=== PATIENT | female | born 1965 | race Caucasian/White ===

== ENCOUNTER → 2017-06-14 | Outpatient (CLI) | payer OTHER ==
--- NOTE | 2017-06-14 11:29 | RADIOLOGY REPORT (SQ) ---
EXAM DESCRIPTION: T SPINE AP/LAT COMPLETED DATE/TIME: 06/14/2017 11:12 am REASON FOR STUDY: PAIN IN THORACIC SPINE M54.6 PAIN IN THORACIC SPINE M54.2 CERVICALGIA COMPARISON: None. NUMBER OF VIEWS: Two views. TECHNIQUE: AP and lateral radiographic images acquired of the thoracic spine. LIMITATIONS: None. FINDINGS: MINERALIZATION: Normal. ALIGNMENT: Normal. No scoliosis. VERTEBRAE: No fracture or bone lesion. Maintained height, normal segmentation. DISCS: No significant loss of height or significant narrowing. There is some minimal anterior osteop hytic lipping in the mid thoracic spine. HARDWARE: None in the spine. MEDIASTINUM AND SOFT TISSUES: Normal heart size and aortic contour. No soft tissue abnormality. VISUALIZED LUNG MORFIN: Clear. OTHER: No other significant finding. IMPRESSION: Minimal degenerative changes as noted above TECHNICAL DOCUMENTATION: JOB ID: [id number] [employer]- All Rights Reserved
--- NOTE | 2017-06-14 11:32 | RADIOLOGY REPORT (SQ) ---
EXAM DESCRIPTION: C SP 4 OR 5 VIEWS COMPLETED DATE/TIME: 06/14/2017 11:12 am REASON FOR STUDY: CERVICALGIA M54.6 PAIN IN THORACIC SPINE M54.2 CERVICALGIA COMPARISON: None. NUMBER OF VIEWS: Five views. TECHNIQUE: AP, lateral, obliques and odontoid radiographic images acquired of the cervical spine. LIMITATIONS: None. FINDINGS: MINERALIZATION: Normal. ALIGNMENT: There is some mild loss of the normal cervical lordosis. VERTEBRAE: Vertebral bodies of normal height. DISCS: There is decrease in the C4-C 5, C5-C6, and C6-C7 disc space heights with associated osteophyt ic lipping. FORAMINA: There is mild foraminal encroachment at the C4-C5, C5-C6 and C6-C7 levels bilaterally. LATERAL AND POSTERIOR ELEMENTS: Facets, lateral masses and spinous processes without significant find ings. HARDWARE: None in the spine. SOFT TISSUES: No masses or calcifications. Lung apices clear. OTHER: No other significant finding. IMPRESSION: Mild degenerative changes as noted above TECHNICAL DOCUMENTATION: JOB ID: [id number]- All Rights Reserved
== END ==
LOC: OD 10:41
PROVIDERS: ATTEND Family Medicine
DX: M54.6 Pain in thoracic spine (principal); M54.2 Cervicalgia
CPT/HCPCS: 72050; 72070

== ENCOUNTER → 2018-02-11 | Outpatient (CLI) | payer OTHER ==
--- NOTE | 2018-02-11 18:20 | RADIOLOGY REPORT (SQ) ---
EXAM DESCRIPTION: ANKLE RIGHT COMPLETE COMPLETED DATE/TIME: 02/11/2018 5:17 pm REASON FOR STUDY: PAIN IN RIGHT ANKLE AND JOINTS OF RIGHT FOOT M25.571 PAIN IN RIGHT ANKLE AND JOIN TS OF RIGHT FOOT COMPARISON: None. NUMBER OF VIEWS: Three views. TECHNIQUE: AP, lateral, and oblique radiographic images acquired of the right ankle. LIMITATIONS: None. FINDINGS: MINERALIZATION: Normal. BONES: No acute fracture or dislocation. No worrisome bone lesions. JOINTS: No effusions. SOFT TISSUES: No soft tissue swelling. No foreign body. OTHER: No other significant finding. IMPRESSION: NEGATIVE STUDY OF THE RIGHT ANKLE. NO RADIOGRAPHIC EVIDENCE OF ACUTE INJURY. TECHNICAL DOCUMENTATION: JOB ID: [id number] [employer]- All Rights Reserved Reading location - IP/workstation name: [email or web address]
== END ==
LOC: OD 16:52
PROVIDERS: ATTEND Family Medicine
DX: M25.571 Pain in right ankle and joints of right foot (principal)

== ENCOUNTER 2019-05-09 20:34 | Emergency (ER) | payer OTHER ==
--- NOTE | 2019-05-09 21:55 | ER Document Report ---
Doctor's Note Notes: 05/09/19 21:54 Patient states she does not want to be seen by a mid-level she was to be seen by a real doctor if there is a real doctor in the emergency room she would like to be seen by a renal doctor.
[2019-05-09] MEDS ORDERED: CLINDAMYCIN HCL 150 MG CAPSULE PO ONE (23:14)
[2019-05-09] MEDS ORDERED: PREDNISONE 20 MG TABLET PO ONE (23:14)
--- NOTE | 2019-05-09 23:19 | ER Document Report ---
ED General - General TRAVEL OUTSIDE OF THE [place] IN LAST 30 DAYS: No - General Chief Complaint: Insect Bite Stated Complaint: BUG BITES Time Seen by Provider: 05/09/19 21:46 Primary Care Provider: NATALIA POWELL DO [Primary Care Provider] - Follow up as needed Notes: Patient is a 54-year-old female who presents with complaint of redness and irritation over and around areas where she has bites from what sounds to be deer flies. States she was bitten several times by yellow flies several days ago. She has been scratching the bites and squeezing them. She says she is now de veloped some redness around her knees and thighs. Bites are mainly over her lower extremities bilaterally. The redness does itch. There is some pain associated as well. No fevers. No vomiting. No abscess. No other complaints at this time. Patient does have a history of being "borderline diabetic". She is not currently on any medications. She is currently being followed for this by her primary care physician. (KATLIN MCKEON) - Related Data Allergies/Adverse Reactions: bee sting Allergy (Uncoded 05/26/14 14:34) Past Medical History - Social History Smoking Status: Unknown if Ever Smoked Frequency of alcohol use: None Drug Abuse: None Family History: Reviewed & Not Pertinent Pulmonary Medical History: Reports: Hx Asthma, Hx COPD Neurological Medical History: Reports: Hx Migraine Past Surgical History: Reports: Hx Cholecystectomy, Hx Hysterectomy, Hx Orthopedic Surgery - Immunizations Hx Diphtheria, Pertussis, Tetanus Vaccination: Yes Review of Systems - Review of Systems Notes: My Normal Review Basic REVIEW OF SYSTEMS: CONSTITUTIONAL : Denies fever, chills, or sweats. Denies recent illness. EENT: Denies eye, ear, throat, or mouth pain or symptoms. Denies nasal or sinus congestion. RESPIRATORY: Denies cough, cold, or chest congestion. Denies shortness of breath, difficulty breathing, or wheezing. GASTROINTESTINAL: Denies abdominal pain. Denies nausea, vomiting, or diarrhea. MUSCULOSKELETAL: Swelling of her lower extremities. SKIN: Redness. Bites on extremities. NEUROLOGICAL: Denies altered mental status or loss of consciousness. Denies headache. Denies weakness or paralysis or loss of use of either side. Denies problems with gait or speech. Denies sensory or motor loss. ALL OTHER SYSTEMS REVIEWED AND NEGATIVE. (KATLIN MCKEON) Physical Exam - Vital signs Vitals: Temp Pulse Resp BP Pulse Ox 99.2 F 115 H 18 145/95 H 97 05/09/19 20:36 05/09/19 20:36 05/09/19 20:36 05/09/19 20:36 05/09/19 20:36 - Notes Notes: General Appearance: Well nourished, alert, cooperative, no acute distress, no obvious discomfort. Vitals: reviewed, See vital signs table Eyes: PERRL, EOMI, Conjuctiva clear Mouth: No decreasd moisture Throat: No tonsillar inflammation, No airway obstruction, No lymphadenopathy Lungs: No wheezing, No rales, No rhonci, No accessory muscle use, good air exchange bilaterally. Heart: Normal rate, Regular rythm, No murmur, no rub Extremities: strength 5/5 in all extremities, good pulses in all extremities, no swelling or tenderness in the extremities, no edema. Skin: Multiple bites and over her lower extremities. She does have some redness over the knees and into the thighs. It is warm to touch. There is no fluctuance or induration. No evidence of abscess. Neuro: speech clear, oriented x 3, normal affect, responds appropriately to questions. (KATLIN MCKEON) Course - Re-evaluation Re-evalutation: 05/09/19 23:18 Patient does have spreading redness around both legs. This could be a localized reaction from the bites however patient has been scratching and opening up the bites and the redness is also somewhat painful as opposed to just pruritic. I therefore will cover with clindamycin. She cannot take Benadryl. I will therefore place her on a in his own to try to help with the itching as well as with a possible reaction. I encouraged her return to ER immediately if she has fevers, vomiting, worsening redness, or if she feels unwell. She says that she does have a history of borderline diabetes but is not on any medications. I did check her blood sugar here it was 122. I did inform her of the risk of her blood sugar increasing on the prednisone and to keep a close eye on this and to return to ER if she feels unwell in any way. Patient agrees with plan will be discharged home. Dictation of this chart was performed using voice recognition software; therefore, there may be some unintended grammatical errors. (KATLIN MCKEON) - Vital Signs Vital signs: Temp Pulse Resp BP Pulse Ox 98.9 F 94 20 136/89 H 98 05/09/19 23:39 05/09/19 23:39 05/09/19 23:39 05/09/19 23:39 05/09/19 23:39 - Laboratory Laboratory results interpreted by me: 05/09/19 23:01 POC Glucose 122 H Discharge - Discharge Clinical Impression: Bug bite Qualifiers: Encounter type: initial encounter Qualified Code(s): W57.XXXA - Bitten or stung by nonvenomous insect and other nonvenomous arthropods, initial encounter Cellulitis Qualifiers: Site of cellulitis: extremity Site of cellulitis of extremity: lower extremity Laterality: unspecified laterality Qualified Code(s): L03.119 - Cellulitis of unspecified part of limb Condition: Good Disposition: HOME, SELF-CARE Additional Instructions: I suspect that the redness around your legs could be a combination of both an infection from scratching the wound as well as a reaction to bug bites themselves. I have placed you on prednisone. Please take it as prescribed. If you start feeling unwell or feel that you are worsening please return to ER so we can recheck you. We have placed you on an antibiotic called clindamycin. Please take this as prescribed. Please stop the antibiotic if you develop diarrhea and return to the ER. Please follow-up with the physician in 3 to 4 days for reevaluation to make sure that everything is improving. Return to ER immediately for fevers, spreading redness, vomiting, or if you feel unwell. Prescriptions: RX: Clindamycin HCl [Cleocin 150 mg Capsule] 300 mg PO Q6 #56 capsule RX: Prednisone [Deltasone 10 mg Tablet] 10 mg PO ASDIR PRN #20 tablet PRN Reason: Referrals: NATALIA POWELL DO [Primary Care Provider] - Follow up as needed
[2019-05-09 23:40] VITALS: BP 136/89
== END 2019-05-09 23:40 | disposition home or self-care (01) ==
LOC: ER 20:34
DX: L03.119 Cellulitis of unspecified part of limb (principal); S80.862A Insect bite (nonvenomous), left lower leg, initial encounter; S80.861A Insect bite (nonvenomous), right lower leg, initial encounter; W57.XXXA Bitten or stung by nonvenomous insect and other nonvenomous arthropods, initial encounter; J44.9 Chronic obstructive pulmonary disease, unspecified
CPT/HCPCS: 99282; 82962; J7512

== ENCOUNTER 2019-06-24 08:26 | Day surgery (SDC) | payer OTHER ==
[2019-06-24] MEDS ORDERED: ALBUTEROL SULFATE 0.083% NEB 2.5 MG/3 ML AMPUL NEB ONE (09:25)
[2019-06-24] MEDS ORDERED: IPRATROPIUM/ALBUTEROL 0.5-2.5 MG/3 ML AMPUL NEB ONE (09:27)
[2019-06-24] MEDS ORDERED: PROMETHAZINE HCL INJ 25 MG/1 ML VIAL IV PRN ×2 (10:07→11:25)
[2019-06-24] MEDS ORDERED: ONDANSETRON HCL INJ/PF 4 MG/2 ML SDV IV PRN (10:07)
[2019-06-24] MEDS ORDERED: DIPHENHYDRAMINE HCL 50 MG/ML VIAL IV PRN (10:07)
[2019-06-24] MEDS ORDERED: FENTANYL CITRATE INJ/PF 100 MCG/2 ML AMPUL IV PRN (10:07)
[2019-06-24] MEDS ORDERED: MIDAZOLAM 2 MG/2 ML INJ ONE (10:19)
[2019-06-24] MEDS ORDERED: PROPOFOL INJ 200 MG/20 ML VIAL IV ONE ×2 (10:19→10:58)
--- NOTE | 2019-06-24 11:02 | Operative Report ---
Operative Report DATE OF SURGERY: 06/24/19 Operative Report: The risks, benefits and alternatives of the procedure including the risk of bleeding, perforation requiring surgery have been explained to the patient in detail and informed consent has been obtained. Patient is taken back to the operating room and placed in the left, lateral decubital position. Timeout was called. Propofol medication is administered. Rectal examination is done which did not reveal any masses, tears or fissures. An Olympus videoscope was introduced into the patient's rectum. The scope was then carefully advanced all the way to the cecum. The cecum was identified by the usual anatomical landmarks including the ileocecal valve as well as the appendiceal office. Photodocumentation is obtained. The scope was then sequentially pulled back via the various segments of the colon including the ascending colon, hepatic flexure, transverse colon, splenic flexure, descending colon finding to the rectosigmoid portions of the colon. Retroflexion maneuvers performed. PREOPERATIVE DIAGNOSIS: Rectal bleeding POSTOPERATIVE DIAGNOSIS: Left-sided colon inflammation status post biopsy. Internal hemorrhoids OPERATION: Colonoscopy with biopsy SURGEON: LENORE MARTINEZ ANESTHESIA: LMAC TISSUE REMOVED OR ALTERED: As noted above. COMPLICATIONS: None. ESTIMATED BLOOD LOSS: None. INTRAOPERATIVE FINDINGS: As noted above. PROCEDURE: Patient tolerated the procedure well. No immediate postprocedure complications are noted. Patient is discharged in good condition. Discharge date 06/24/2019. Discharge diet: Regular. Discharge activity: Regular. 2 to 3-week follow-up to discuss findings. Patient is instructed to call the office or proceed to the emergency room should there be any further problems or questions. Wait on the pathology. This can also be used as a screening since then no polyps 10-year surveillance colonoscopy.
[2019-06-24] MEDS ORDERED: ACETAMINOPHEN 325 MG TABLET PO PRN (11:24)
[2019-06-24] MEDS ORDERED: SIMETHICONE 80 MG TAB.CHEW PO PRN (11:24)
[2019-06-24 12:22] VITALS: BP 135/80
== END 2019-06-24 12:25 | disposition home or self-care (01) ==
LOC: END 08:26
PROVIDERS: ATTEND Internal Medicine Gastroenterology
DX: K62.5 Hemorrhage of anus and rectum (principal); K52.9 Noninfective gastroenteritis and colitis, unspecified; K64.8 Other hemorrhoids; E66.9 Obesity, unspecified; G47.33 Obstructive sleep apnea (adult) (pediatric); J43.9 Emphysema, unspecified; Z68.30 Body mass index [BMI] 30.0-30.9, adult; F17.210 Nicotine dependence, cigarettes, uncomplicated
CPT/HCPCS: 45380; 82962; 88305 ×2; 94640; 00811; J2250; J2704; J7620; 811

== ENCOUNTER → 2020-01-28 | Outpatient (CLI) | payer OTHER ==
--- NOTE | 2020-01-28 13:02 | RADIOLOGY REPORT (SQ) ---
EXAM DESCRIPTION: CHEST PA/LATERAL COMPLETED DATE/TIME: 01/28/2020 12:52 pm REASON FOR STUDY: PRE-OP COMPARISON: None. EXAM PARAMETERS: NUMBER OF VIEWS: two views TECHNIQUE: Digital Frontal and Lateral radiographic views of the chest acquired. RADIATION DOSE: NA LIMITATIONS: none FINDINGS: LUNGS AND PLEURA: No opacities, masses or pneumothorax. No pleural effusion. MEDIASTINUM AND HILAR STRUCTURES: No masses or contour abnormalities. HEART AND VASCULAR STRUCTURES: Heart normal size. No evidence for failure. BONES: No acute findings. HARDWARE: None in the chest. OTHER: No other significant finding. IMPRESSION: NO SIGNIFICANT RADIOGRAPHIC FINDING IN THE CHEST. TECHNICAL DOCUMENTATION: JOB ID: [id number] 2010 [employer]- All Rights Reserved Reading location - IP/workstation name: [email or web address]
--- NOTE | 2020-01-28 13:03 | EKG REPORT ---
SEVERITY:- NORMAL ECG - SINUS RHYTHM : Confirmed by: Amador Salvador MD 28-Jan-2020 13:02:55
[2020-01-28 13:07] LABS: ABSOLUTE BASOPHILS # (AUTO) 0.1 10^3/uL (0.0-0.2); ABSOLUTE EOSINOPHILS # (AUTO) 0.2 10^3/uL (0.0-0.6); ABSOLUTE MONOCYTES (AUTO) 0.5 10^3/uL (0.1-1.4); MONOCYTES % (AUTO) 5.1 % (3-13); TOTAL CELLS COUNTED % (AUTO) 100 %
[2020-01-28 13:17] LABS: APPEARANCE,URINE CLEAR; BILIRUBIN,URINE NEGATIVE (NEGATIVE); COLOR,URINE YELLOW; GLUCOSE, URINE NEGATIVE (NEGATIVE); KETONES,URINE NEGATIVE (NEGATIVE); LEUKOCYTE ESTERASE,URINE NEGATIVE (NEGATIVE); NITRITE,URINE NEGATIVE (NEGATIVE); PROTEIN,URINE NEGATIVE (NEGATIVE); URINE SPECIFIC GRAVITY 1.012; UROBILINOGEN,URINE NEGATIVE mg/dL (<2.0)
[2020-01-28 13:19] LABS: ABSOLUTE LYMPHOCYTES (AUTO) 2.2 10^3/uL (0.5-4.7); ABSOLUTE NEUT (AUTO) 6.3 10^3/uL (1.7-8.2); HEMATOCRIT 39.8 % (36.0-47.0); HEMOGLOBIN 13.7 g/dL (12.0-15.5); LYMPHOCYTES % (AUTO) 23.9 % (13-45); MEAN CORPUSCULAR HEMOGLOBIN 28.2 pg (27.0-33.4); MEAN CORPUSCULAR HGB CONC 34.4 g/dL (32.0-36.0); MEAN CORPUSCULAR VOLUME 82 fl (80-97); PLATELET COUNT 360 10^3/uL (150-450); RED BLOOD COUNT 4.86 10^6/uL (3.72-5.28); RED CELL DISTRIBUTION WIDTH 15.2 % (11.5-14.0); WHITE BLOOD COUNT 9.2 10^3/uL (4.0-10.5)
[2020-01-28 13:28] LABS: ANION GAP 9 (5-19); BLOOD UREA NITROGEN 15 mg/dL (7-20); CALCIUM 10.3 mg/dL (8.4-10.2); CARBON DIOXIDE 28 mmol/L (22-30); CHLORIDE 100 mmol/L (98-107); GLUCOSE 97 mg/dL (75-110); POTASSIUM 5.2 mmol/L (3.6-5.0)
== END ==
LOC: OD 12:18
PROVIDERS: ATTEND Orthopaedic Surgery
DX: Z01.810 Encounter for preprocedural cardiovascular examination (principal); Z01.811 Encounter for preprocedural respiratory examination; Z01.812 Encounter for preprocedural laboratory examination; M17.12 Unilateral primary osteoarthritis, left knee; E11.9 Type 2 diabetes mellitus without complications
CPT/HCPCS: 36415; 71046; 80048; 81001; 83036; 85025; 93005; 93010

== ENCOUNTER → 2020-02-04 | Outpatient (CLI) | payer OTHER | LOC: OD 11:18 → EDSTATUS 02-15 11:15 | PROVIDERS: ATTEND Orthopaedic Surgery | DX: Z53.9 Procedure and treatment not carried out, unspecified reason (principal) ==

== ENCOUNTER 2020-04-04 06:55 | Inpatient (IN) | payer OTHER ==
[2020-03-30 14:09] LABS: ABSOLUTE BASOPHILS # (AUTO) 0.1 10^3/uL (0.0-0.2); ABSOLUTE EOSINOPHILS # (AUTO) 0.1 10^3/uL (0.0-0.6); ABSOLUTE LYMPHOCYTES (AUTO) 3.2 10^3/uL (0.5-4.7); ABSOLUTE MONOCYTES (AUTO) 0.5 10^3/uL (0.1-1.4); ABSOLUTE NEUT (AUTO) 5.8 10^3/uL (1.7-8.2); BASOPHILS % (AUTO) 0.9 % (0-2); EOSINOPHILS % (AUTO) 1.4 % (0-6); HEMATOCRIT 41.7 % (36.0-47.0); LYMPHOCYTES % (AUTO) 32.5 % (13-45); MEAN CORPUSCULAR HEMOGLOBIN 27.7 pg (27.0-33.4); MEAN CORPUSCULAR HGB CONC 33.7 g/dL (32.0-36.0); MEAN CORPUSCULAR VOLUME 82 fl (80-97); MONOCYTES % (AUTO) 5.5 % (3-13); PLATELET COUNT 423 10^3/uL (150-450); RED BLOOD COUNT 5.06 10^6/uL (3.72-5.28); RED CELL DISTRIBUTION WIDTH 14.5 % (11.5-14.0); SEGMENTED NEUTROPHILS % (AUTO) 59.7 % (42-78); TOTAL CELLS COUNTED % (AUTO) 100 %; WHITE BLOOD COUNT 9.8 10^3/uL (4.0-10.5)
--- NOTE | 2020-03-30 14:11 | RADIOLOGY REPORT (SQ) ---
EXAM DESCRIPTION: CHEST PA/LATERAL IMAGES COMPLETED DATE/TIME: 03/30/2020 1:33 pm REASON FOR STUDY: PRE-OP COMPARISON: 01/28/2020 EXAM PARAMETERS: NUMBER OF VIEWS: two views TECHNIQUE: Digital Frontal and Lateral radiographic views of the chest acquired. RADIATION DOSE: NA LIMITATIONS: none FINDINGS: LUNGS AND PLEURA: No opacities, masses or pneumothorax. No pleural effusion. MEDIASTINUM AND HILAR STRUCTURES: No masses or contour abnormalities. HEART AND VASCULAR STRUCTURES: Heart normal size. No evidence for failure. BONES: No acute findings. HARDWARE: None in the chest. OTHER: No other significant finding. IMPRESSION: NO SIGNIFICANT RADIOGRAPHIC FINDING IN THE CHEST. TECHNICAL DOCUMENTATION: JOB ID: [id number] 2010 [employer]- All Rights Reserved Reading location - IP/workstation name: [email or web address]
[2020-03-30 14:20] LABS: APPEARANCE,URINE CLOUDY; BILIRUBIN,URINE NEGATIVE (NEGATIVE); COLOR,URINE YELLOW; GLUCOSE, URINE NEGATIVE (NEGATIVE); KETONES,URINE NEGATIVE (NEGATIVE); LEUKOCYTE ESTERASE,URINE NEGATIVE (NEGATIVE); NITRITE,URINE NEGATIVE (NEGATIVE); PROTEIN,URINE NEGATIVE (NEGATIVE); URINE SPECIFIC GRAVITY 1.025; UROBILINOGEN,URINE NEGATIVE mg/dL (<2.0)
[2020-03-30 14:23] LABS: ANION GAP 12 (5-19); BLOOD UREA NITROGEN 13 mg/dL (7-20); CALCIUM 9.9 mg/dL (8.4-10.2); CARBON DIOXIDE 26 mmol/L (22-30); CHLORIDE 100 mmol/L (98-107); GLUCOSE 104 mg/dL (75-110); POTASSIUM 4.5 mmol/L (3.6-5.0)
--- NOTE | 2020-03-30 19:53 | EKG REPORT ---
SEVERITY:- BORDERLINE ECG - SINUS RHYTHM PROBABLE LEFT ATRIAL ABNORMALITY : Confirmed by: Amador Salvador MD 30-Mar-2020 19:53:17
[~2020-04-04 06:55] MED LIST: BUPIVACAINE INJ/PF LIPOSOME/PF 266 MG/20 ML SDV INJ PRN; CEFAZOLIN INJ 1 GM VIAL IV PRN; EPHEDRINE SULFATE INJ 50 MG/1 ML AMPULE ONE; FENTANYL CITRATE INJ/PF 100 MCG/2 ML AMPUL ONE; IBUPROFEN 800 MG in NORMAL SALINE 250 ML IV PRN; LACTATED RINGERS 1000 ML IV PRN; LIDOCAINE 0.5% INJ-PF (5 MG/ML) 50 ML SDV SUBCUT PRN; MIDAZOLAM 2 MG/2 ML INJ ONE; OXYCODONE HCL SR 10 MG TABLET PO PRN; PANTOPRAZOLE SODIUM 20 MG TABLET.DR PO PRN; PROPOFOL INJ 200 MG/20 ML VIAL IV ONE; TRANEXAMIC ACID INJ/PF 1,000 MG/10 ML SDV ONE; VANCOMYCIN HCL 1,000 MG in DEXTROSE 5%-WATER 250 ML IV PRN
[2020-04-04] MEDS ORDERED: ONDANSETRON HCL INJ/PF 4 MG/2 ML SDV ONE (07:05)
[2020-04-04] MEDS ORDERED: DEXAMETHASONE SOD PHOSPHATE INJ 4 MG/1 ML VIAL ONE (07:05)
[2020-04-04] MEDS ORDERED: OXYCODONE HCL SR 10 MG TABLET PO ONE (08:06)
[2020-04-04] MEDS ORDERED: CEFAZOLIN 1 GM/D5W RTU 1 GM/50 ML RTUPB IV ONE (08:07)
[2020-04-04] MEDS ORDERED: PANTOPRAZOLE SODIUM 20 MG TABLET.DR PO ONE (08:10)
[2020-04-04] MEDS ORDERED: MIDAZOLAM 2 MG/2 ML INJ ONE (10:42)
[2020-04-04] MEDS ORDERED: BUPIVACAINE INJ/PF LIPOSOME/PF 266 MG/20 ML SDV ONE (10:50)
[2020-04-04] MEDS ORDERED: PROMETHAZINE HCL INJ 25 MG/1 ML VIAL IV PRN ×2 (11:47)
[2020-04-04] MEDS ORDERED: FENTANYL CITRATE INJ/PF 100 MCG/2 ML AMPUL IV PRN ×3 (11:47)
[2020-04-04] MEDS ORDERED: MORPHINE SULFATE 10 MG/ML INJ IV PRN ×3 (11:47→15:54)
[2020-04-04] MEDS ORDERED: OXYCODONE-ACETAMINOPHEN 5-325 MG TABLET PO PRN ×2 (11:47)
[2020-04-04] MEDS ORDERED: DIPHENHYDRAMINE HCL 50 MG/ML VIAL IV PRN ×2 (11:47→15:54)
[2020-04-04] MEDS ORDERED: MEPERIDINE HCL/PF INJ 25 MG/1 ML DISP.SYRIN IV PRN (11:47)
[2020-04-04] MEDS ORDERED: RINGERS SOLUTION,LACTATED 1,000 ML IV PRN (12:18)
[2020-04-04] MEDS ORDERED: ZOLPIDEM TARTRATE 5 MG TABLET PO PRN (12:18)
[2020-04-04] MEDS ORDERED: MAG HYDROX/AL HYDROX/SIMETH SUSP 30 ML UDCUP PO PRN (12:18)
[2020-04-04] MEDS ORDERED: ONDANSETRON HCL INJ/PF 4 MG/2 ML SDV IV PRN (12:18)
[2020-04-04] MEDS ORDERED: ONDANSETRON 4 MG TAB.RAPDIS PO PRN (12:18)
[2020-04-04] MEDS ORDERED: OXYCODONE HCL IR 5 MG TABLET PO PRN (12:18)
[2020-04-04] MEDS ORDERED: ACETAMINOPHEN 325 MG TABLET PO PRN (12:18)
--- NOTE | 2020-04-04 12:23 | Operative Report ---
Operative Report DATE OF SURGERY: 04/04/20 PREOPERATIVE DIAGNOSIS: Left knee arthritis OPERATION: Left knee arthroplasty SURGEON: YULISA SPARROW ANESTHESIA: GA TISSUE REMOVED OR ALTERED: Bone to pathology ESTIMATED BLOOD LOSS: 75 PROCEDURE: Implants used: Femur: Robinson howardathlon size 5 CR uncemented femur Tibia: 4 uncemented tibia Tibial liner: 9 mm CS insert Patella: 35 mm oval patella Procedure with the patient supine on the operating table the left the limb is prepped and draped in a sterile fashion. The limb was elevated for exsanguination and the tourniquet inflated to 280 torr. A standard midline median parapatellar approach the knee is taken. Access is gained to the femoral canal through the intercondylar notch. Intramedullary alignment instrumentation used to resect 10 mm of distal femur in 5 of valgus. Sizing guide indicated a size 5 femur. Appropriate cutting jig is then used to fashion anterior posterior and chamfer cuts. A trial reduction femurs performed and this is judged to be adequate. Attention was next turned to the tibia. Using an extra medullary alignment system 9 millimeters was resected off the lateral tibial plateau. This is sized to a size 4 tibia. A trial reduction was now performed with a 5 femur and a 4 tibia using a 9 millimeters spacer. It is full extension and central patellofemoral tracking. The articular surface the patella was next resected using an oscillating saw. All trial implants were removed. The above implants are impacted into position. the tourniquet was deflated and hemostasis obtained the wound is then closed in layers using interrupted Vicryl followed by gerardo. A sterile compressive dressing was applied and the patient returned to recovery room in satisfactory condition.
[2020-04-04] MEDS ORDERED: TRANEXAMIC ACID INJ/PF 1,000 MG/10 ML SDV IV ONE ×2 (13:00→16:00)
[2020-04-04] MEDS: MORPHINE SULFATE 10 MG/ML INJ ONE ×2 (13:03→13:08)
--- NOTE | 2020-04-04 13:39 | RADIOLOGY REPORT (SQ) ---
EXAM DESCRIPTION: KNEE LEFT 2 VIEWS IMAGES COMPLETED DATE/TIME: 04/04/2020 1:15 pm REASON FOR STUDY: Post OP -Long Cassette in PACU M17.12 UNILATERAL PRIMARY OSTEOARTHRITIS, LEFT KNE E COMPARISON: None. NUMBER OF VIEWS: Two views. TECHNIQUE: AP and lateral radiographic images acquired of the left knee. LIMITATIONS: None. FINDINGS: MINERALIZATION: Normal. BONES: Status post TKA. The hardware is in anatomic alignment. There is no periprosthetic fracture. JOINT: Subcutaneous and intra-articular emphysema. SOFT TISSUES: As above. OTHER: Surgical cutaneous gerardo. IMPRESSION: Status post TKA with expected immediate postoperative findings. TECHNICAL DOCUMENTATION: JOB ID: [id number] 2010 [employer]- All Rights Reserved Reading location - IP/workstation name: [email or web address]
[2020-04-04] MEDS: SENNOSIDES/DOCUSATE 8.6-50 MG 1 EACH TABLET PO SCH (17:34)
[2020-04-04] MEDS: IBUPROFEN 800 MG in NORMAL SALINE 250 ML IV SCH (18:11)
[2020-04-04] MEDS: OXYCODONE HCL SR 10 MG TABLET PO SCH (23:41)
[2020-04-04] MEDS: PREGABALIN 75 MG CAPSULE PO SCH (23:41)
[2020-04-05] MEDS ORDERED: VANCOMYCIN HCL 1,000 MG in DEXTROSE 5%-WATER 250 ML IV ONE (00:18)
[2020-04-05] MEDS: IBUPROFEN 800 MG in NORMAL SALINE 250 ML IV SCH ×2 (02:00→11:23)
[2020-04-05] MEDS ORDERED: PANTOPRAZOLE SODIUM 40 MG TABLET.DR PO SCH (06:00)
[2020-04-05 06:13] LABS: HEMOGLOBIN 10.7 g/dL (12.0-15.5); MEAN CORPUSCULAR HEMOGLOBIN 27.8 pg (27.0-33.4); MEAN CORPUSCULAR HGB CONC 33.6 g/dL (32.0-36.0); MEAN CORPUSCULAR VOLUME 83 fl (80-97); PLATELET COUNT 268 10^3/uL (150-450); RED BLOOD COUNT 3.86 10^6/uL (3.72-5.28); RED CELL DISTRIBUTION WIDTH 14.9 % (11.5-14.0); WHITE BLOOD COUNT 16.2 10^3/uL (4.0-10.5)
[2020-04-05 06:37] LABS: ANION GAP 7 (5-19); BLOOD UREA NITROGEN 18 mg/dL (7-20); CALCIUM 9.2 mg/dL (8.4-10.2); CARBON DIOXIDE 25 mmol/L (22-30); CHLORIDE 101 mmol/L (98-107); GLUCOSE 140 mg/dL (75-110)
--- NOTE | 2020-04-05 07:16 | PDOC DISCHARGE SUMMARY ---
Impression - Admit/DC Date/PCP Admission Date/Primary Care Provider: 04/04/20 07:12 NATALIA POWELL DO Discharge Date: 04/05/20 - Discharge Diagnosis (1) Arthritis of left knee Is this a current diagnosis for this admission?: Yes - Additional Information Resuscitation Status: Full Code Discharge Diet: Regular Discharge Activity: Balance Activity w/Rest, No tub bath Referrals: YULISA SPARROW MD [ACTIVE STAFF] - 04/12/20 10:30 am Home Medications: Dextroamphetamine/Amphetamine [Adderall 20 mg Tablet] 60 mg PO QAM 06/24/19 Dextroamphetamine/Amphetamine [Dextroamp-Amphetamin 20 mg Tab] 20 mg PO NOON 02/01/20 Levothyroxine Sodium 50 mcg PO DAILY 04/04/20 History of Present Illiness History of Present Illness: TRACE SHELDON is a 55 year old female 55-year-old white female with progressive left knee pain and functional disability second osteoarthritis. Patient is admitted for elective left knee arthroplasty. Hospital Course Hospital Course: Patient is admitted through the operating where she undergoes an uncomplicated left knee arthroplasty. She was returned to floor in satisfactory condition. She ambulates over 150 feet on the day of surgery. Physical Exam Vital Signs: Temp Pulse Resp BP Pulse Ox 36.7 C 97 18 157/76 H 100 04/05/20 00:00 04/05/20 00:00 04/05/20 00:00 04/05/20 00:00 04/05/20 00:00 Intake & Output 04/04/20 04/05/20 04/06/20 06:59 06:59 06:59 Intake Total 5635 Output Total 3509 Balance 2126 Weight 119.9 kg General appearance: PRESENT: obese Respiratory exam: PRESENT: unlabored Cardiovascular exam: PRESENT: RRR Vascular exam: PRESENT: normal capillary refill GI/Abdominal exam: PRESENT: soft Rectal exam: PRESENT: deferred Musculoskeletal exam: PRESENT: other - Left lower extremity dressing clean dry and intact. Distal neurovascular examination is intact. Psychiatric exam: PRESENT: agitated Skin exam: PRESENT: dry, intact, warm. ABSENT: cyanosis, rash Results Laboratory Results: WBC 16.2 10^3/uL (4.0-10.5) H 04/05/20 05:55 RBC 3.86 10^6/uL (3.72-5.28) 04/05/20 05:55 Hgb 10.7 g/dL (12.0-15.5) L 04/05/20 05:55 Hct 32.0 % (36.0-47.0) L 04/05/20 05:55 MCV 83 fl (80-97) 04/05/20 05:55 MCH 27.8 pg (27.0-33.4) 04/05/20 05:55 MCHC 33.6 g/dL (32.0-36.0) 04/05/20 05:55 RDW 14.9 % (11.5-14.0) H 04/05/20 05:55 Plt Count 268 10^3/uL (150-450) 04/05/20 05:55 Lymph % (Auto) 32.5 % (13-45) 03/30/20 13:10 Bertie % (Auto) 5.5 % (3-13) 03/30/20 13:10 Eos % (Auto) 1.4 % (0-6) 03/30/20 13:10 Baso % (Auto) 0.9 % (0-2) 03/30/20 13:10 Absolute Neuts (auto) 5.8 10^3/uL (1.7-8.2) 03/30/20 13:10 Absolute Lymphs (auto) 3.2 10^3/uL (0.5-4.7) 03/30/20 13:10 Absolute Monos (auto) 0.5 10^3/uL (0.1-1.4) 03/30/20 13:10 Absolute Eos (auto) 0.1 10^3/uL (0.0-0.6) 03/30/20 13:10 Absolute Basos (auto) 0.1 10^3/uL (0.0-0.2) 03/30/20 13:10 Seg Neutrophils % 59.7 % (42-78) 03/30/20 13:10 Sodium 132.8 mmol/L (137-145) L 04/05/20 05:55 Potassium 5.0 mmol/L (3.6-5.0) 04/05/20 05:55 Chloride 101 mmol/L (98-107) 04/05/20 05:55 Carbon Dioxide 25 mmol/L (22-30) 04/05/20 05:55 Anion Gap 7 (5-19) 04/05/20 05:55 BUN 18 mg/dL (7-20) 04/05/20 05:55 Creatinine 0.70 mg/dL (0.52-1.25) 04/05/20 05:55 Est GFR ( Amer) > 60 (>60) 04/05/20 05:55 Est GFR (MDRD) Non-Af > 60 (>60) 04/05/20 05:55 Glucose 140 mg/dL (75-110) H 04/05/20 05:55 Hemoglobin A1c % 6.0 % (4.7-6.0) 03/30/20 13:10 Calcium 9.2 mg/dL (8.4-10.2) 04/05/20 05:55 Urine Color YELLOW 03/30/20 13:10 Urine Appearance CLOUDY 03/30/20 13:10 Urine pH 5.0 (5.0-9.0) 03/30/20 13:10 Ur Specific [place] 1.025 03/30/20 13:10 Urine Protein NEGATIVE mg/dL (NEGATIVE) 03/30/20 13:10 Urine Glucose (UA) NEGATIVE mg/dL (NEGATIVE) 03/30/20 13:10 Urine Ketones NEGATIVE mg/dL (NEGATIVE) 03/30/20 13:10 Urine Blood NEGATIVE (NEGATIVE) 03/30/20 13:10 Urine Nitrite NEGATIVE (NEGATIVE) 03/30/20 13:10 Urine Bilirubin NEGATIVE (NEGATIVE) 03/30/20 13:10 Urine Urobilinogen NEGATIVE mg/dL (<2.0) 03/30/20 13:10 Ur Leukocyte Esterase NEGATIVE (NEGATIVE) 03/30/20 13:10 Urine WBC (Auto) 3 /HPF 03/30/20 13:10 Urine RBC (Auto) 4 /HPF 03/30/20 13:10 U Hyaline Cast (Auto) 3 /LPF 03/30/20 13:10 Urine Bacteria (Auto) 3+ /HPF 03/30/20 13:10 Squamous Epi Cells Auto 8 /HPF 03/30/20 13:10 Urine Mucus (Auto) MANY /LPF 03/30/20 13:10 Urine Ascorbic Acid NEGATIVE (NEGATIVE) 03/30/20 13:10 COVID-19 Source NASOPHARYNGEAL 03/30/20 13:00 COVID-19 (GISSELLE) NOT DETECTED 03/30/20 13:00 Blood Type A POSITIVE 04/04/20 08:00 Antibody Screen NEGATIVE 04/04/20 08:00 Impressions: Chest X-Ray 03/30/20 13:19 IMPRESSION: NO SIGNIFICANT RADIOGRAPHIC FINDING IN THE CHEST. Knee X-Ray 04/04/20 12:20 IMPRESSION: Status post TKA with expected immediate postoperative findings. Plan Plan of Treatment: Patient be discharged home on a weightbearing as tolerated basis with home health services and DME. Follow-up with Dr. Sparrow and [facility] for surgery in 2 weeks for staple removal. Stroke Is this a Stroke Patient?: No Stroke Pt being discharged on Anti-thrombolytic therapy?: Yes Acute Heart Failure - Is this a Heart Failure Patient?: No
[2020-04-05] MEDS ORDERED: DEXTROAMPHETAMINE PO SCH (08:00)
[2020-04-05] MEDS ORDERED: AMPHETAMINE PO SCH (08:00)
[2020-04-05] MEDS ORDERED: PRENATAL VITAMIN W DHA CAPSULE PO SCH (10:00)
[2020-04-05] MEDS ORDERED: LEVOTHYROXINE SODIUM 0.075 MG TABLET PO SCH (10:00)
[2020-04-05] MEDS: SENNOSIDES/DOCUSATE 8.6-50 MG 1 EACH TABLET PO SCH (11:21)
[2020-04-05] MEDS: PREGABALIN 75 MG CAPSULE PO SCH (11:22)
[2020-04-05] MEDS: OXYCODONE HCL SR 10 MG TABLET PO SCH (11:22)
[2020-04-05 15:21] VITALS: BP 110/38
== END 2020-04-05 18:39 | disposition home health service (06) | DRG 470 ==
LOC: INOR 07:12 → 4S 13:56
PROVIDERS: ADMIT Orthopaedic Surgery; ATTEND Orthopaedic Surgery
PROC: 0SRD0JA Replacement of Left Knee Joint with Synthetic Substitute, Uncemented, Open Approach (ICD-10-PCS; principal; 2020-04-04 09:00)
DX: M17.12 Unilateral primary osteoarthritis, left knee (principal); E66.9 Obesity, unspecified; M54.9 Dorsalgia, unspecified; E11.9 Type 2 diabetes mellitus without complications; J43.9 Emphysema, unspecified; F17.210 Nicotine dependence, cigarettes, uncomplicated; G47.30 Sleep apnea, unspecified; G47.419 Narcolepsy without cataplexy; Z79.84 Long term (current) use of oral hypoglycemic drugs; Z79.899 Other long term (current) drug therapy; Z82.49 Family history of ischemic heart disease and other diseases of the circulatory system; Z83.3 Family history of diabetes mellitus
CPT/HCPCS: 01402; 36415; 71046; 80048; 81001; 83036; 85025; 85027; 86850; 86900; 86901; 87635; 88305; 88311; 93005; 93010; 94799; C9290; J0690; J1100; J1741; J2250; J2270; J2405; J2704; J3010; J3370; J3490; J7050; J7060; S0119